=== PATIENT | female | born 1975 | race African-American/Black ===

== ENCOUNTER 2024-09-06 17:17 | Inpatient (IN) | payer BC ==
[~2024-09-06] VITALS: Ht 160 cm; Wt 67.3 kg
[2024-09-06 18:53] LABS: BASOPHILS # (AUTO) 0.1 K/uL (0.0-0.2); EOSINOPHILS # (AUTO) 0.1 K/uL (0.0-0.7); HEMATOCRIT 38 % (33-45); HEMOGLOBIN 12.1 g/dL (11.5-14.8); LYMPHOCYTES # (AUTO) 2.3 K/uL (0.8-4.8); LYMPHOCYTES % (AUTO) 25.7 % (20.0-44.0); MEAN CORPUSCULAR HEMOGLOBIN 25 PG (26.0-33.0); MEAN CORPUSCULAR HGB CONC 32 g/dl (31.0-36.0); MEAN CORPUSCULAR VOLUME 76 fL (82-100); MONOCYTES # (AUTO) 0.7 K/uL (0.1-1.30); MONOCYTES % (AUTO) 8.1 % (2.0-12.0); NEUTROPHILS # (AUTO) 5.7 K/uL (1.8-8.9); NEUTROPHILS % (AUTO) 64.2 % (43.0-81.0); PLATELET COUNT (AUTO) 325 K/uL (150-450); RED BLOOD CELL COUNT(AUTO) 4.96 MIL/uL (4.0-5.2); RED CELL DISTRIBUTION WIDTH 17.6 % (11.5-15.0); WHITE BLOOD COUNT (AUTO) 8.9 K/uL (4.3-11.0)
[2024-09-06] MEDS: IV NS 0.9% 1,000 ML BAG IV ONE (19:00)
[2024-09-06] MEDS: AMPICILLIN /SULBACTAM 3 G in IV NS 0.9% 50 ML IJ SCH (19:00)
[2024-09-06 19:04] LABS: INR 0.94 (0.91-1.10); PARTIAL THROMBOPLASTIN TIME 28.5 SEC (24.3-34.3); PROTHROMBIN TIME 9.7 SECS (9.2-11.1)
[2024-09-06 19:06] LABS: ALBUMIN 3.8 g/dL (3.4-5.0); BILIRUBIN,DIRECT 0.1 mg/dL (0.0-0.2); BILIRUBIN,TOTAL 0.3 mg/dL (0.2-1.0); CALCIUM, SERUM 9.9 mg/dL (8.5-10.1); CREATININE 0.7 mg/dL (0.6-1.3); POTASSIUM 4.1 mmol/L (3.5-5.1); TOTAL PROTEIN, SERUM 8.2 g/dL (6.4-8.2)
[2024-09-06 19:09] LABS: LACTIC ACID 0.8 mmol/L (0.4-2.0)
[2024-09-06] MEDS ORDERED: GABA300C PO (19:33)
[2024-09-06] MEDS ORDERED: LURA40TA PO (19:33)
[2024-09-06] MEDS ORDERED: LITH300C2 PO (19:33)
[2024-09-06] MEDS ORDERED: IOHEXOL-350 100 ML VIAL IV ONE (21:22)
[2024-09-06] MEDS ORDERED: IV NS 0.9% 250 ML IV ONE (21:23)
[2024-09-06 21:43] VITALS: O2SAT 98
[2024-09-06 22:00] VITALS: BP 136/75; TEMP 98.1; O2SAT 98
[2024-09-07] MEDS ORDERED: ACETAMINOPHEN 325 MG TABLET PO PRN
[2024-09-07] MEDS ORDERED: ONDANSETRON HCL/PF 4 MG/2 ML VIAL IVP PRN
[2024-09-07] MEDS ORDERED: GABAPENTIN 300 MG CAPSULE PO PRN
[2024-09-07] MEDS ORDERED: MAGNESIUM HYDROXIDE 30 ML UDC PO PRN
[2024-09-07] MEDS ORDERED: DOSE PER PHARMACY (MD SPECIFY MEDICATION) 1 EA IV PRN
[2024-09-07] MEDS: MORPHINE SULFATE INJ 2 MG/ML DISP.SYRIN IV PRN (06:25)
[2024-09-07 07:27] LABS: BASOPHILS % (AUTO) 0.3 % (0.0-2.0); EOSINOPHILS # (AUTO) 0.1 K/uL (0.0-0.7); EOSINOPHILS % (AUTO) 2.2 % (0.0-6.0); HEMATOCRIT 34 % (33-45); HEMOGLOBIN 10.7 g/dL (11.5-14.8); LYMPHOCYTES # (AUTO) 1.9 K/uL (0.8-4.8); LYMPHOCYTES % (AUTO) 30.8 % (20.0-44.0); MEAN CORPUSCULAR HEMOGLOBIN 24 PG (26.0-33.0); MEAN CORPUSCULAR HGB CONC 32 g/dl (31.0-36.0); MEAN CORPUSCULAR VOLUME 76 fL (82-100); MONOCYTES # (AUTO) 0.5 K/uL (0.1-1.30); MONOCYTES % (AUTO) 8.9 % (2.0-12.0); NEUTROPHILS # (AUTO) 3.5 K/uL (1.8-8.9); NEUTROPHILS % (AUTO) 57.8 % (43.0-81.0); PLATELET COUNT (AUTO) 223 K/uL (150-450); RED BLOOD CELL COUNT(AUTO) 4.39 MIL/uL (4.0-5.2); RED CELL DISTRIBUTION WIDTH 17.4 % (11.5-15.0); WHITE BLOOD COUNT (AUTO) 6.1 K/uL (4.3-11.0)
[2024-09-07 07:46] LABS: CREATININE 0.6 mg/dL (0.6-1.3); MAGNESIUM 2.2 mg/dL (1.8-2.4); PHOSPHORUS 4.1 mg/dL (2.5-4.9)
[2024-09-07] MEDS: PANTOPRAZOLE 40 MG TABLET.DR PO SCH (08:00)
[2024-09-07 08:30] VITALS: BP 105/68; TEMP 98.6; O2SAT 100
[2024-09-07 16:00] VITALS: BP 124/75; TEMP 98.1; O2SAT 100
[2024-09-07 20:14] VITALS: BP 112/78; TEMP 98.1; O2SAT 99
[2024-09-07] MEDS: LITHIUM CARBONATE (300 MG CAP) 300 MG CAPSULE PO SCH (20:54)
[2024-09-07] MEDS ORDERED: LITHIUM CARBONATE ER 300 MG TABLET.SA PO SCH ×2 (22:00)
[2024-09-08 08:00] VITALS: BP 106/76; TEMP 98.4; O2SAT 99
[2024-09-08 15:19] LABS: APPEARANCE,URINE CLEAR (CLEAR); BILIRUBIN,URINE NEGATIVE (NEGATIVE); BLOOD, URINE NEGATIVE Ery/uL (NEGATIVE); COLOR,URINE YELLOW (YELLOW); KETONES,URINE NEGATIVE (NEGATIVE); LEUKOCYTE ESTERASE ,URINE NEGATIVE (NEGATIVE); NITRITE, URINE NEGATIVE (NEGATIVE); PH,URINE 6.5 (5.0-8.0); PREGNANCY TEST URINE QUAL NEGATIVE (NEGATIVE); PROTEIN,URINE NEGATIVE (NEGATIVE); UGLUCOSE NEGATIVE (NEGATIVE)
[2024-09-08 16:00] VITALS: BP 115/71; TEMP 98.6; O2SAT 97
[2024-09-08 20:00] VITALS: BP 115/80; TEMP 98.1; O2SAT 100
[2024-09-08 20:04] LABS: ADD URINE CULTURE NO; BACTERIA,URINE Rare /HPF (None Seen); RBC,URINE 0-2 /HPF (0-2); SQUAMOUS EPITHELIAL CELL,UR Few /HPF (None Seen); WBC,URINE 0-2 /HPF (0-3)
[2024-09-08] MEDS: LURASIDONE HCL 40 MG PO SCH (21:07)
[2024-09-08] MEDS: LITHIUM CARBONATE 300 MG PO SCH (21:07)
[2024-09-09] MEDS ORDERED: AMOX-430 PO (07:19)
[2024-09-09 08:00] VITALS: BP 117/77; TEMP 98.1; O2SAT 100
== END 2024-09-09 10:30 | disposition home or self-care (01) | DRG 603 ==
LOC: ER 17:23 → MED 21:49
PROVIDERS: ADMIT Nurse Practitioner Family; ATTEND Internal Medicine
DX: L03.113 Cellulitis of right upper limb (principal); W54.0XXA Bitten by dog, initial encounter; F41.9 Anxiety disorder, unspecified; F31.9 Bipolar disorder, unspecified; Y93.9 Activity, unspecified; Y92.009 Unspecified place in unspecified non-institutional (private) residence as the place of occurrence of the external cause
CPT/HCPCS: 36415; 71045-TC; 73090-TC; 73201-TC; 80048-TC; 80076-TC; 80178-TC; 81001; 83605-TC; 83735-TC; 84100-TC; 84703-TC; 85025-TC; 85730-TC; 87040-TC; 87086-TC; A4223; G0378; J0295; J2270; J7030; J7040; J7050; Q9967